=== PATIENT | female | born 1935 | race Caucasian/White ===

== ENCOUNTER → 2021-01-10 | Outpatient (CLI) | payer MEDICARE ==
[~2021-01-10] MED LIST: ARTHRITIS PAIN100 GM TP; ATORVASTATIN CA20 MG PO; BACTRIM DS TAB1 EACH PO; CITALOPRAM HBR10 MG PO; CLOPIDOGREL75 MG PO; COZAAR 50MG TAB50 MG PO; ELIQUIS 2.5 MG2.5 MG PO; FERROUS GLUCON324 M1 PO; HYDROCODON-ACE1 EAC4 PO; METOPROLOL SUCC25 MG PO; MIRALAX17 GM PO; THERAGRAN M TAB1 EA PO
== END ==
LOC: HEART CORB 09:30
DX: I25.10 Atherosclerotic heart disease of native coronary artery without angina pectoris (principal); R07.9 Chest pain, unspecified; I10 Essential (primary) hypertension; I27.20 Pulmonary hypertension, unspecified; I08.3 Combined rheumatic disorders of mitral, aortic and tricuspid valves; R93.1 Abnormal findings on diagnostic imaging of heart and coronary circulation
CPT/HCPCS: 78452; 93306; A9502; J2785

== ENCOUNTER 2021-02-06 01:48 | Inpatient (IN) | payer MEDICARE ==
[~2021-02-06] VITALS: Ht 154.9 cm; Wt 44.9 kg
[2021-02-06] MEDS ORDERED: ATORVASTATIN CA20 MG PO (05:04)
[2021-02-06] MEDS ORDERED: CITALOPRAM HBR10 MG PO (05:05)
[2021-02-06] MEDS ORDERED: CLOPIDOGREL75 MG PO (05:05)
[2021-02-06] MEDS ORDERED: ARTHRITIS PAIN100 GM TP (05:06)
[2021-02-06] MEDS ORDERED: METOPROLOL SUCC25 MG PO (05:07)
[2021-02-06] MEDS ORDERED: COZAAR 50MG TAB50 MG PO (05:07)
[2021-02-06 07:11] LABS: RED BLOOD COUNT 4.27 M/UL (4.00-5.10)
[2021-02-06 07:33] LABS: BUN/CREATININE RATIO 30 (0-10)
[2021-02-06 18:37] LABS: HEMOGLOBIN 9.6 gm/dl (12.3-15.3)
--- NOTE | 2021-02-06 19:15 | NUR ---
PT WITH B/P 69/41. BS 140. MD NOTIFIED WITH BOLUS STARTED. PT DROWSY FROM SURGERY. EASILY AWAKENED. B/P IMPROVED TO 93/54. MD AWARE
[2021-02-07 03:03] LABS: HEMOGLOBIN 8.1 gm/dl (12.3-15.3); WHITE BLOOD COUNT 7.2 K/UL (4.5-11.0)
[2021-02-07 03:07] LABS: RED BLOOD COUNT 2.92 M/UL (4.00-5.10)
[2021-02-07 03:19] LABS: BUN/CREATININE RATIO 24 (0-10)
[2021-02-07 15:52] LABS: HEMOGLOBIN 8.9 gm/dl (12.3-15.3); RED BLOOD COUNT 3.18 M/UL (4.00-5.10); WHITE BLOOD COUNT 7.9 K/UL (4.5-11.0)
[2021-02-08 06:13] LABS: HEMOGLOBIN 7.7 gm/dl (12.3-15.3)
[2021-02-08 06:19] LABS: RED BLOOD COUNT 2.74 M/UL (4.00-5.10)
[2021-02-08 06:31] LABS: BUN/CREATININE RATIO 29 (0-10)
[2021-02-09 04:22] LABS: HEMOGLOBIN 9.4 gm/dl (12.3-15.3); WHITE BLOOD COUNT 7.7 K/UL (4.5-11.0)
[2021-02-09 04:25] LABS: RED BLOOD COUNT 3.32 M/UL (4.00-5.10)
[2021-02-09 05:09] LABS: BUN/CREATININE RATIO 24 (0-10)
[2021-02-09] MEDS ORDERED: MIRALAX17 GM PO (11:06)
[2021-02-09] MEDS ORDERED: FERROUS GLUCON324 M1 PO (11:06)
[2021-02-09] MEDS ORDERED: THERAGRAN M TAB1 EA PO (11:06)
[2021-02-13 04:52] LABS: HEMOGLOBIN 9.5 gm/dl (12.3-15.3); RED BLOOD COUNT 3.32 M/UL (4.00-5.10); WHITE BLOOD COUNT 5.9 K/UL (4.5-11.0)
[2021-02-13 05:15] LABS: BUN/CREATININE RATIO 21 (0-10)
[2021-02-14 03:14] LABS: HEMOGLOBIN 9.5 gm/dl (12.3-15.3); RED BLOOD COUNT 3.28 M/UL (4.00-5.10); WHITE BLOOD COUNT 5.4 K/UL (4.5-11.0)
[2021-02-14 03:35] LABS: BUN/CREATININE RATIO 19 (0-10)
[2021-02-15 03:57] LABS: HEMOGLOBIN 9.4 gm/dl (12.3-15.3); RED BLOOD COUNT 3.31 M/UL (4.00-5.10); WHITE BLOOD COUNT 5.1 K/UL (4.5-11.0)
[2021-02-15 04:49] LABS: BUN/CREATININE RATIO 32 (0-10)
[2021-02-17] MEDS ORDERED: ELIQUIS 2.5 MG2.5 MG PO (08:32)
[2021-02-17] MEDS ORDERED: FERROUS GLUCON324 M1 PO (08:49)
[2021-02-17] MEDS ORDERED: THERAGRAN M TAB1 EA PO (08:49)
[2021-02-17] MEDS ORDERED: MIRALAX17 GM PO (08:49)
[2021-02-17] MEDS ORDERED: BACTRIM DS TAB1 EACH PO (10:49)
[2021-02-17] MEDS ORDERED: HYDROCODON-ACE1 EAC4 PO (12:25)
== END 2021-02-17 18:23 | DRG 956 ==
LOC: MED SURG 4 03:59
PROVIDERS: Internal Medicine; Internal Medicine Infectious Disease; Orthopaedic Surgery; Physician Assistant; ADMIT Internal Medicine
PROC: 0SRS0JA Replacement of Left Hip Joint, Femoral Surface with Synthetic Substitute, Uncemented, Open Approach (ICD-10-PCS; principal; 2021-02-06 11:48)
PROC: 30233N1 Transfusion of Nonautologous Red Blood Cells into Peripheral Vein, Percutaneous Approach (ICD-10-PCS; 2021-02-08)
DX: S72.012A Unspecified intracapsular fracture of left femur, initial encounter for closed fracture (principal); S32.502A Unspecified fracture of left pubis, initial encounter for closed fracture; D62 Acute posthemorrhagic anemia; E87.1 Hypo-osmolality and hyponatremia; Z20.822 Contact with and (suspected) exposure to COVID-19; W19.XXXA Unspecified fall, initial encounter; I10 Essential (primary) hypertension; E78.5 Hyperlipidemia, unspecified; D50.9 Iron deficiency anemia, unspecified; I95.2 Hypotension due to drugs; F41.9 Anxiety disorder, unspecified; F32.9 Major depressive disorder, single episode, unspecified; K59.00 Constipation, unspecified; R94.6 Abnormal results of thyroid function studies; Z90.710 Acquired absence of both cervix and uterus; Z82.5 Family history of asthma and other chronic lower respiratory diseases; Z88.1 Allergy status to other antibiotic agents; Y92.9 Unspecified place or not applicable; Z86.73 Personal history of transient ischemic attack (TIA), and cerebral infarction without residual deficits; Z88.0 Allergy status to penicillin; Z88.8 Allergy status to other drugs, medicaments and biological substances; Z79.02 Long term (current) use of antithrombotics/antiplatelets; Z79.899 Other long term (current) drug therapy
CPT/HCPCS: 36415; 36430; 72170; 73502; 80048; 80053; 82607; 82728; 82746; 82962; 83540; 83550; 83735; 84443; 85014; 85018; 85025; 85027; 86850; 86900; 86901; 86920; 94760; 97110-GP-CQ; 97116; 97116-GP-CQ; 97161; 97166; 97530; 97535; C1776; J0690; J1756; J2370; J2704; J7120; P9016; U0002